=== PATIENT | male | born 1945 | race Caucasian/White ===

== ENCOUNTER → 2020-06-28 | Outpatient (CLI) | payer MEDICARE ==
[~2020-06-28] MED LIST: ASCO500T20 PO; ASPI-1197 PO; CHOL100040 PO; CINN500C PO; ENAL5TAB17 PO; FISH OIL PO; METF-446 PO; METOPROLOL PO; MULTIVITAMIN PO; PRAV40TA3 PO; TAMS0.4C32 PO
== END | disposition home or self-care (01) ==
LOC: RAH 12:12
PROVIDERS: ATTEND Orthopaedic Surgery Orthopaedic Surgery of the Spine
DX: S43.015A Anterior dislocation of left humerus, initial encounter (principal); X58.XXXA Exposure to other specified factors, initial encounter; Y93.89 Activity, other specified; Y92.89 Other specified places as the place of occurrence of the external cause; Y99.8 Other external cause status
CPT/HCPCS: 73030

== ENCOUNTER 2023-05-14 09:26 | Day surgery (SDC) | payer OTHER ==
[2023-05-12 14:42] VITALS: BP 137/62; PULSE 56; RESP 18
[2023-05-12 14:44] LABS: BASOPHILS # (AUTO) 0.03 K/uL (0.00-0.20); BASOPHILS % (AUTO) 0.6 % (0.0-5.0); EOSINOPHILS # (AUTO) 0.23 K/uL (0.00-0.70); EOSINOPHILS % (AUTO) 4.6 % (0.0-8.0); HEMATOCRIT 41.7 % (42-54); IMMATURE GRANULOCYTE ABSOLUTE 0.01 K/uL (0-1); LYMPHOCYTES # (AUTO) 0.9 K/uL (1.0-4.8); LYMPHOCYTES % (AUTO) 18.2 % (21.0-51.0); MEAN CORPUSCULAR HEMOGLOBIN 28.2 pg (27.0-33.0); MEAN CORPUSCULAR HGB CONC 31.7 g/dL (32.0-36.0); MEAN CORPUSCULAR VOLUME 89.1 fL (79-99); MONOCYTES # (AUTO) 0.5 K/uL (0.1-1.0); MONOCYTES % (AUTO) 9.1 % (3.0-13.0); NEUTROPHILS # (AUTO) 3.3 K/uL (1.8-7.7); NEUTROPHILS % (AUTO) 67.3 % (40.0-77.0); PLATELET COUNT (AUTO) 149 K/uL (130-400); RED BLOOD CELL COUNT(AUTO) 4.68 MIL/uL (4.50-6.20); RED CELL DISTRIBUTION WIDTH 14.2 % (11.0-15.5)
[2023-05-12 14:54] LABS: POTASSIUM 4.9 mmol/L (3.5-5.1)
[2023-05-12 14:58] LABS: INR 0.94 (0.85-1.15); PROTHROMBIN TIME 10.9 SEC (9.6-11.6)
[2023-05-12 14:59] LABS: PARTIAL THROMBOPLASTIN TIME 24.9 SEC (26.3-35.5)
[2023-05-12 15:05] LABS: B-TYPE NATRIURETIC PEPTIDE 73 pg/mL (0-100)
[2023-05-14] VITALS (10 sets, daily range): BP systolic 100–124; BP diastolic 44–57; PULSE 56–72; RESP 15–16
[~2023-05-14] VITALS: Ht 174 cm; Wt 97.0 kg
[~2023-05-14 09:26] MED LIST changes: +AEC81 PO; -ASCO500T20 PO; -ASPI-1197 PO; -CHOL100040 PO; -CINN500C PO; +ENAL-91 PO; -ENAL5TAB17 PO; -FISH OIL PO; +ISOS30TA92 PO; +METO25TA6 PO; -METOPROLOL PO; -MULTIVITAMIN PO; +NITR0.4T50 SL; -PRAV40TA3 PO; +ROSU20TA73 PO; +TAMS-1 PO; -TAMS0.4C32 PO
[2023-05-14] MEDS ORDERED: 0.9%NACL 1000ML 1,000 ML IV ONE (10:11)
[2023-05-14] MEDS ORDERED: IOHEXOL 350 MG/ML 100ML INFUS..BTL IV ONE ×2 (12:09→13:00)
[2023-05-14] MEDS ORDERED: LIDOCAINE HCL 400MG/20ML VIAL ONE (12:09)
[2023-05-14] MEDS ORDERED: IOHEXOL-350 50ML VIAL IV ONE ×2 (12:10→13:03)
[2023-05-14] MEDS ORDERED: VERAPAMIL HCL 2.5 MG/ML VIAL ONE (12:10)
[2023-05-14] MEDS ORDERED: HEPARIN 10,000 UNIT/10ML (1,000 UNIT/ML) VIAL ONE (12:10)
[2023-05-14] MEDS ORDERED: NITROGLYCERIN 50MG VIAL ONE (12:10)
[2023-05-14] MEDS ORDERED: FENTANYL CITRATE PF 50 MCG/1 ML 2ML VIAL ONE (12:22)
[2023-05-14] MEDS ORDERED: MIDAZOLAM HCL 1 MG/ML 2ML VIAL ONE (12:22)
[2023-05-14] MEDS ORDERED: DEXTROSE 50%-WATER 50 ML DISP.SYRIN IV PRN (13:30)
[2023-05-14] MEDS ORDERED: 0.9%NACL 1000ML 1,000 ML IV SCH (13:30)
[2023-05-14] MEDS ORDERED: INSULIN HUMULIN R 100 UNIT/ML 3ML SQ SCH (16:30)
== END 2023-05-14 16:35 | disposition home or self-care (01) ==
LOC: DAH 09:26
PROVIDERS: ATTEND Internal Medicine Interventional Cardiology
DX: I25.119 Atherosclerotic heart disease of native coronary artery with unspecified angina pectoris (principal); I25.82 Chronic total occlusion of coronary artery; I10 Essential (primary) hypertension; E11.43 Type 2 diabetes mellitus with diabetic autonomic (poly)neuropathy; E66.01 Morbid (severe) obesity due to excess calories; E11.59 Type 2 diabetes mellitus with other circulatory complications; E78.2 Mixed hyperlipidemia; Z79.899 Other long term (current) drug therapy; Z79.01 Long term (current) use of anticoagulants; Z79.84 Long term (current) use of oral hypoglycemic drugs; Z79.82 Long term (current) use of aspirin; Z95.1 Presence of aortocoronary bypass graft; Z68.31 Body mass index [BMI] 31.0-31.9, adult; Z95.5 Presence of coronary angioplasty implant and graft
CPT/HCPCS: 80048; 83880; 85025; 85610; 85730; 36415; 71045; 93005; 93459; 82948 ×2; C1894 ×2; C1760; J3010; J3490 ×2; J7030; J2250; J1644; Q9967 ×4; A4215; A4222; A4221; A4663; A4216; A4606; Q9965 ×2; A4223 ×3; 99156; 99157